=== PATIENT | female | born 1965 | race African-American/Black ===

== ENCOUNTER 2017-02-15 06:45 | Emergency (ER) | payer OTHER ==
[~2017-02-15 06:45] MED LIST: ANUSOL-HC CREAM30 GM TOP; ASPIRIN PO; DICLOFENAC SODI50 MG PO; FLEXERIL10 M1 PO; FOLIC ACID PO; HYDROCODON-ACE1 EAC5 PO; IBUPROFEN PO; IBUPROFEN800 MG PO; LORTAB 10-5001 EACH PO; MACROBID100 M1 PO; METFORMIN; METFORMIN PO; NERVE MED PO; PERCOCET 10/3251 TAB PO; PRILOSEC PO
== END 2017-02-15 06:52 | disposition home or self-care (01) ==
LOC: CED 06:45
DX: I46.9 Cardiac arrest, cause unspecified (principal); E11.9 Type 2 diabetes mellitus without complications
CPT/HCPCS: 92950; 99285; J0171